=== PATIENT | male | born 2005 | race Caucasian/White ===

== ENCOUNTER 2025-01-28 18:41 | Emergency (ER) | payer OTHER, SELFPAY ==
[2025-01-28 19:05] VITALS: BP 129/84; PULSE 89; RESP 18; TEMP 36.9; O2SAT 95; BMI 22.2
--- NOTE | 2025-01-28 19:28 | W.ED.HEATRA ---
HPI - Head Injury General: Chief complaint: Head Injury Stated complaint: Laceration on forehead Time Seen by Provider: 01/28/25 19:19 History of Present Illness: The patient is a male who presents to the emergency department approximately 45 minutes after sustaining a facial injury while working on a vehicle. He reports that he was pulling on a tejas handle when it was not properly tightened, causing it to strike him in the face. The impact occurred above the bridge of the nose, and the patient can visualize the shape of the handle imprint on his forehead. He denies loss of consciousness at the time of injury. Currently, he reports mild sinus discomfort and pain with biting down. He experiences intermittent taste of blood, which he attributes to possible nasal drainage. The patient is able to breathe normally through both nostrils, though he notes some blood in one nostril. He describes his current discomfort as similar to a mild migraine. He is concerned about potential scarring given the facial location of the injury and is seeking evaluation for possible repair options. Related Data Home Medications ?Medication ?Instructions ?Recorded ?Confirmed No Known Home Medications 01/25/21 04/07/22 Allergies Allergy/AdvReac Type Severity Reaction Status Date / Time No Known Allergies Allergy Verified 01/28/25 19:12 [facility] ED PFSH: Social History Smoking and tobacco/nicotine status: never used tobacco/nicotine Second hand smoke exposure: No Alcohol intake: never Substance/Drug Use: never Physical Exam HENMT: COMMON NORMALS: normocephalic HEAD & SCALP: normocephalic FACE & SINUS: ecchymosis, laceration (2.5 cm superficial curved. between eyes. ) and Facial tenderness on exam of face and sinuses (mild nasal. ); no abrasion, no crepitus, no edema and no TMJ findings NOSE: Epistaxis present on the left (minimal dried blood present) MOUTH: no TMJ findings Eye: COMMON NORMALS: Equal, round and reactive pupils present, EOMs intact bilaterally and conjunctivae normal CONJUNCTIVA: Yes conjunctivae normal PUPIL: Yes Equal, round and reactive pupils present Neck/C-Spine: CERVICAL SPINE: No Cervical spine tenderness Resp: COMMON NORMALS: normal respiratory effort and No retractions Cardio: COMMON NORMALS: regular rate and regular rhythm RATE: regular rate RHYTHM: regular rhythm Neuro: BURTON COMA SCALE: document GCS findings Burton coma scale eye opening: Spontaneous Burton coma scale verbal response: Orientated Burton coma scale motor response: Obey commands [place] coma scale total score: 15 Procedures Laceration Laceration 1: Site: face Size (cm): 2.5 Description: linear Depth: simple, single layer Local Anesthetic: lidocaine 1% and with epi Amount of anesthesia used (mL): 2 Pre-repair: wound explored, irrigated extensively and deep structures intact Skin layer closed with: other (Prolene) Size (cm): 5-0 Number of sutures: 4 Technique: simple, interrupted Course Vital Signs: Vital signs: Vital Signs Temperature 98.4 F 01/28/25 19:05 Pulse Rate 89 01/28/25 19:05 Respiratory Rate 18 01/28/25 19:05 Blood Pressure 129/84 01/28/25 19:05 Pulse Oximetry 95 01/28/25 19:05 Oxygen Delivery Me thod Room Air 01/28/25 19:05 MDM - Head Injury Medcial Decision Making Laceration repaired without complication. No evidence of septal hematoma. No continued bleeding. No clinical evidence of facial fracture otherwise. Headache is resolved. He was offered CT scan, but declined. Clinically he is stable. Sutures out in 5 to 7 days return for any problems No radiology studies performed this visit Discharge Plan Discharge Patient Disposition: Home Clinical Impression: Facial contusion Qualifiers: Encounter type: initial encounter Qualified Code(s): S00.83XA - Contusion of other part of head, initial encounter Facial laceration Qualifiers: Encounter type: initial encounter Qualified Code(s): S01.81XA - Laceration without foreign body of other part of head, initial encounter Condition: Stable Prescriptions: No Action No Known Home Medications Discharge Orders: Discharge ED (Routine); Ordered 01/28/25 Ordered By: Alonzo Olmstead Patient Instructions: Facial Contusion (ED), Facial Laceration (ED), Opioid Safety, Pain Management, Patient Portal & Yee Instructions Activity Restrictions/Additional Instructions: Sutures out in 5 to 7 days. Keep clean and dry for 12 hours, then you may wash with soap and running water. Do not soak. Return for any problems. Print Language: Latvian Coding Level of Care Code ED Operations Staff Specialist Security for Brad Coello
[2025-01-28] MEDS: lidocaine-epi 1% 20 mL INJ INJECTION (19:50)
--- NOTE | 2025-01-28 20:07 | PC.NURSE ---
pt reports tetanus shot earlier this year
--- NOTE | 2025-01-28 20:35 | PC.NURSE ---
4 sutures applied to facial laceration by ed provider
[2025-01-28 20:36] VITALS: BP 148/69; PULSE 91; RESP 18; O2SAT 98
== END 2025-01-28 20:37 | disposition home or self-care (01) ==
PROVIDERS: Emergency Provider Emergency Medicine
DX: S01.81XA Laceration without foreign body of other part of head, initial encounter (principal); W22.8XXA Striking against or struck by other objects, initial encounter
CPT/HCPCS: 12002; 99283; J9999